=== PATIENT | female | born 1990 | race Caucasian/White ===

== ENCOUNTER 2018-02-12 17:09 | Emergency (ER) | payer SELFPAY ==
[~2018-02-12] VITALS: Ht 157.5 cm; Wt 72.7 kg
[2018-02-12 17:15] VITALS: Ht 157.5 cm; Wt 72.7 kg
[2018-02-12] MEDS ORDERED: AUGMENTIN 875-11 TAB PO (19:47)
[2018-02-12] MEDS ORDERED: PHENERGAN DM SYR5 ML PO (19:47)
[2018-02-12 20:16] VITALS: BP 132/77
== END 2018-02-12 20:18 | disposition home or self-care (01) ==
LOC: D.ER 17:09
DX: J02.9 Acute pharyngitis, unspecified (principal); J06.9 Acute upper respiratory infection, unspecified; M79.18 Myalgia, other site; R05 Cough; R09.89 Other specified symptoms and signs involving the circulatory and respiratory systems; R49.0 Dysphonia